=== PATIENT | male | born 1965 | race Two or more races ===

== ENCOUNTER 2019-07-09 12:28 | Inpatient (IN) | payer OTHER ==
[~2019-07-09] VITALS: Ht 170.2 cm; Wt 83.0 kg
[2019-07-21] MEDS ORDERED: LOSARTAN-HCTZ1 EAC2 PO (13:52)
[2019-07-21] MEDS ORDERED: ZANTAC150 M3 PO (13:53)
== END 2019-07-30 20:26 | disposition home or self-care (01) | DRG 334 ==
LOC: SURG 07-21 10:30 → O/R 07-29 06:30 → SURH 07-29 14:15
PROVIDERS: ADMIT Colon & Rectal Surgery
PROC: 0DBP4ZZ Excision of Rectum, Percutaneous Endoscopic Approach (ICD-10-PCS; principal; 2019-07-29 16:45)
DX: C20 Malignant neoplasm of rectum (principal)

== ENCOUNTER 2020-09-30 08:31 | Day surgery (SDC) | payer OTHER ==
[~2020-09-30 08:31] MED LIST: LOSARTAN-HCTZ1 EAC2 PO; ZANTAC150 M3 PO
== END 2020-09-30 15:30 | disposition home or self-care (01) ==
LOC: AMB-ENDOS 08:31
PROVIDERS: ATTEND Colon & Rectal Surgery
DX: K62.89 Other specified diseases of anus and rectum (principal); K64.1 Second degree hemorrhoids; Z20.828 Contact with and (suspected) exposure to other viral communicable diseases